=== PATIENT | female | born 1970 | race Caucasian/White ===

== ENCOUNTER 2017-09-16 01:34 | Emergency (ER) | payer OTHER ==
[~2017-09-16] VITALS: Ht 157.5 cm; Wt 54.4 kg
== END 2017-09-16 02:53 | disposition home or self-care (01) ==
LOC: ED 01:34
DX: F12.90 Cannabis use, unspecified, uncomplicated (principal); Z90.710 Acquired absence of both cervix and uterus; Z98.51 Tubal ligation status
CPT/HCPCS: 99283

== ENCOUNTER 2019-05-15 10:53 | Emergency (ER) | payer OTHER ==
[~2019-05-15] VITALS: Ht 157.5 cm; Wt 54.4 kg
[2019-05-15] MEDS ORDERED: ULTRAM50 MG PO (11:50)
[2019-05-15] MEDS ORDERED: IBU800 MG PO (11:50)
== END 2019-05-15 12:19 | disposition home or self-care (01) ==
LOC: ED 10:53
DX: M54.2 Cervicalgia (principal); Z90.710 Acquired absence of both cervix and uterus
CPT/HCPCS: 96372; 99283-25; J1885